=== PATIENT | female | born 1960 | race Caucasian/White ===

== ENCOUNTER 2020-12-29 18:52 | Emergency (ER) | payer OTHER ==
[~2020-12-29] VITALS: Ht 160 cm; Wt 74.0 kg
[2020-12-29] MEDS ORDERED: NEOMY/BACITR/POLYMYXIN OINT PACKET. TP ONE (19:30)
--- NOTE | 2020-12-29 19:40 | PHYS DOC ---
Past History Past Medical History: Anxiety Past Surgical History: Tubal ligation, Other Additional Past Surgical Histo: knee surgery, endometrial ablasion Smoking: Less than 1pk/day Alcohol Use: Occasionally Drug Use: None General Adult EDM: Chief Complaint: MECHANICAL FALL HPI: HPI: Patient is a 60 year old female who presents with a lip laceration. 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 She denies LOC, does not currently have a headache, and no AMS since the incident. She went to [facility] Tuesday morning and was given a tetanus shot and instructed to let her wound heal by secondary inten tion. She came in today because the laceration is draining pus and there is a black eschar covering the area and she was concerned for infection. The laceration is about 1 cm on the right side of her lip that extends slightly beyond the gaby boarder. She does not have diabetes or any excessive pain or swelling in the area. The laceration does not extend to the inside of her m outh/mucosa. She does not have any other concerns at this time. Review of Systems: Review of Systems: Constitutional: Denies fever or chills Eyes: Denies redness or eye pain HENT: Denies nasal congestion or sore throat. Reports a 1 cm laceration on the right side of her mouth. Respiratory: Denies cough or shortness of breath Cardiovascular: Denies chest pain or palpitations GI: Denies abdominal pain, nausea, or vomiting : Denies dysuria or hematuria Musculoskeletal: Denies back pain or joint pain Integument: Denies rash or skin lesions. Mild bruising is present on the right side of her chin inferior to the laceration. Neurologic: Denies headache, focal weakness or sensory changes Complete systems were reviewed and found to be within normal limits, except as documented in this note. Current Medications: Current Meds: Current Medications Medications (Trade) Dose Ordered Sig/Lila Start Time Stop Time Status Last Admin Dose Admin Neomycin/ Polymyxin/ Bacitracin (Triple Antibiotic Ointment) 1 pkt 1X ONCE 12/29/20 19:30 12/29/20 19:31 DC Allergies: Allergies: Allergies Coded Allergies Type Severity Reaction Last Updated Verified Penicillins Allergy Unknown 12/29/20 Yes cephalexin Allergy Unknown Anaphylaxis 2/1/21 Yes Physical Exam: PE: Constitutional: Well developed, well nourished, no acute distress, non-toxic appearance HENT: Normocephalic,1 cm laceration on the outter right side of her mouth extending just past her gaby boarder. The laceration is slightly open with a small black eschar and some mild erythema and pus drainage. Mild bruising is present on her right chin and inferior to the lip laceration. No lesions within her mouth or swelling in the neck, submandibular area, or sinuses. Eyes: PERRL, EOMI, conjunctiva normal, no discharge Neck: Normal range of motion, no tenderness, supple Lungs & Thorax: No respiratory distress, equal chest rise and fall Abdomen: Soft, no tenderness Skin: Warm, dry, no erythema, no rash Back: No tenderness, no CVA tenderness Extremities: No tenderness, ROM intact, no edema Neurologic: Alert and oriented X 3, normal motor function, normal sensory function, no focal deficits noted Psychologic: Affect normal, judgment normal Current Patient Data: Vital Signs: Vital Signs Date Time Temp Pulse Resp B/P (MAP) Pulse Ox O2 Delivery O2 Flow Rate FiO2 12/29/20 19:04 98.3 84 16 163/86 (111) 97 EKG: EKG: [] Radiology/Procedures: Radiology/Procedures: [] Course & Med Decision Making: Course & Med Decision Making Mayte Garcia is a 60 yo female who presents today for concern of infection of a lip laceration after a mechanical fall last . She had no LOC at the time, and no headache or AMS since the incident, so CT of the head was not indicated. On physical exam she does not have excessive erythema, swelling, pain out of proportion, or risk factors that are concerning for more serious infection such as diabetes, immunosuppression, cancer, ect. She was given Clindamycin and instructed to continue cleaning with soap and water as well as keeping it clean and covered. She was agreeable to this plan and had no other questions at this time. Patient stable for discharge with outpatient follow-up with PCP. Discussed findings and plan with patient, who acknowledges understanding and agreement. Sheyla Disclaimer: Sheyla Disclaimer: This electronic medical record was generated, in whole or in part, using a voice recognition dictation system. Departure Departure: Impression: Primary Impression: Laceration of lip with delay in treatment Qualified Codes: S01.511D - Laceration without foreign body of lip, [place] bsequent encounter Disposition: 01 DC HOME SELF CARE/HOMELESS Condition: STABLE Referrals: PCP,NO (PCP) Patient Instructions: Laceration, Old, Not Sutured Additional Instructions: Do not soak your wound. You may shower. Clean wound daily with soap and water. Change dressing 2 times daily. Use over the counter antibiotic ointment with each dressing change. Scripts Clindamycin Hcl (CLINDAMYCIN HCL) 300 Mg Capsule 1 CAP PO TID for infection, #21 CAP Prov: VENTURA KELLOGG DO 12/29/20 VENTURA KELLOGG DO Dec 29, 2020 19:40
[2020-12-29] MEDS ORDERED: CLIN300C9 PO (19:43)
[2020-12-29] MEDS ORDERED: CLINDAMYCIN HCL 150 MG CAPSULE PO ONE (19:45)
[2020-12-29 20:00] VITALS: BP 144/78
== END 2020-12-29 20:00 | disposition home or self-care (01) ==
LOC: ER 18:52
DX: S01.511A Laceration without foreign body of lip, initial encounter (principal); F41.9 Anxiety disorder, unspecified; F17.200 Nicotine dependence, unspecified, uncomplicated; Z88.0 Allergy status to penicillin; Z88.1 Allergy status to other antibiotic agents; W01.198A Fall on same level from slipping, tripping and stumbling with subsequent striking against other object, initial encounter; Y93.89 Activity, other specified; Y92.59 Other trade areas as the place of occurrence of the external cause; Y99.8 Other external cause status
CPT/HCPCS: 99283